=== PATIENT | male | born 1970 | race Two or more races ===

== ENCOUNTER 2020-02-26 05:46 | Day surgery (SDC) | payer OTHER ==
[~2020-02-26 05:46] MED LIST: CLONAZEPAM2 M1 PO; MOTRIN IB200 M1 PO; PAXIL30 MG PO
[2020-02-26] MEDS ORDERED: ULTRACET PO (08:59)
[2020-02-26] MEDS ORDERED: BACTRIM DS TAB1 EACH PO (08:59)
== END 2020-02-26 11:55 | disposition home or self-care (01) ==
LOC: CIR.AMB 05:46
PROVIDERS: ATTEND Orthopaedic Surgery Sports Medicine
DX: M23.321 Other meniscus derangements, posterior horn of medial meniscus, right knee (principal); M65.861 Other synovitis and tenosynovitis, right lower leg; Z20.828 Contact with and (suspected) exposure to other viral communicable diseases